=== PATIENT | female | born 1995 | race Caucasian/White ===

== ENCOUNTER → 2025-02-14 | Outpatient (CLI) | payer OTHER | LOC: M WHC 11:34 | PROVIDERS: ATTEND Advanced Practice Midwife | DX: Z36.89 Encounter for other specified antenatal screening (principal) ==

== ENCOUNTER → 2025-04-14 | Outpatient (REF) | payer OTHER | LOC: M PLALAB 14:56 | PROVIDERS: ATTEND Advanced Practice Midwife | DX: Z34.02 Encounter for supervision of normal first pregnancy, second trimester (principal) ==

== ENCOUNTER → 2025-04-14 | Outpatient (CLI) | payer OTHER, SELFPAY ==
[2025-04-14 17:24] LABS: PLATELET COUNT, AUTOMATED 198 10^3/uL (150-450)
[2025-04-14 17:52] LABS: GLUCOSE CHALLENGE TEST 1 HOUR 90 MG/DL (LESS THAN 140)
[2025-04-14 18:22] LABS: HIV 1&2 SCREEN NEGATIVE (NEGATIVE)
[2025-04-14 18:28] LABS: HEPATITIS C VIRUS ABY INDEX 0.04 INDEX (<0.8)
[2025-04-14 19:05] LABS: Trichomonas vaginalis (AMP) NOT DETECTED (NEGATIVE)
[2025-04-14 19:28] LABS: GC DNA AMPLIFICATION NEGATIVE (NEGATIVE)
== END ==
LOC: M PLALAB 13:59
PROVIDERS: ATTEND Advanced Practice Midwife
DX: Z34.02 Encounter for supervision of normal first pregnancy, second trimester (principal)

== ENCOUNTER → 2025-06-15 | Outpatient (REF) | payer OTHER | LOC: M PLALAB 10:59 | PROVIDERS: ATTEND Obstetrics & Gynecology | DX: Z34.83 Encounter for supervision of other normal pregnancy, third trimester (principal) ==

== ENCOUNTER 2025-07-09 14:36 | Outpatient (CLI) | payer OTHER ==
[~2025-07-09] VITALS: Ht 162.6 cm; Wt 90.5 kg
[2025-07-09] MEDS ORDERED: PRENMIS3 PO (14:51)
[2025-07-09] MEDS ORDERED: TUMS500C PO (14:51)
[2025-07-09] MEDS ORDERED: MAG100TA PO (14:51)
[2025-07-09] MEDS ORDERED: ACET-907 PO (14:51)
[2025-07-09] MEDS ORDERED: BENA25CA4 PO (14:51)
[2025-07-09 14:53] VITALS: BP 133/85
[2025-07-09] MEDS ORDERED: HOME MED LIST COMPLETE! XX SCH (15:00)
[2025-07-09 15:09] VITALS: BP 129/83
[2025-07-09 15:24] VITALS: BP 128/86
[2025-07-09 15:39] VITALS: BP 126/84
[2025-07-09 16:05] LABS: TOTAL PROTEIN,RANDOM URINE 14.9 MG/DL (0.0-14.0)
[2025-07-09 16:21] VITALS: BP 127/85
[2025-07-09 16:40] LABS: PLATELET COUNT, AUTOMATED 154 10^3/uL (150-450)
[2025-07-09 16:50] VITALS: BP 131/82
[2025-07-09 17:12] LABS: LDH LACTATE DEHYDROGENASE 154 U/L (120-246)
[2025-07-09 17:13] LABS: ALT/SGPT 13 U/L (7.0-40); AST/SGOT 16 U/L (<34); CALCIUM LEVEL 9.0 MG/DL (8.5-10.1); CARBON DIOXIDE LEVEL 23 MMOL/L (20-31); CHLORIDE LEVEL 102 MMOL/L (98-107); CREATININE FOR GFR 0.52 MG/DL (0.55-1.30); GLOMERULAR FILTRATION RATE > 90.0 (>60); POTASSIUM SERUM 3.9 MMOL/L (3.5-5.1); SODIUM LEVEL 137 MMOL/L (136-145)
== END 2025-07-09 18:43 | disposition home or self-care (01) ==
LOC: M LDO 14:36
PROVIDERS: ATTEND Obstetrics & Gynecology
DX: O36.8130 Decreased fetal movements, third trimester, not applicable or unspecified (principal); O99.343 Other mental disorders complicating pregnancy, third trimester; O48.0 Post-term pregnancy; F41.8 Other specified anxiety disorders; Z3A.40 40 weeks gestation of pregnancy
CPT/HCPCS: 36415; 59025; 76815; 80053; 82570; 83615; 84156; 84550; 85027; G0463

== ENCOUNTER 2025-07-11 19:03 | Inpatient (IN) | payer OTHER ==
[~2025-07-11] VITALS: Ht 162.6 cm; Wt 91.3 kg
[~2025-07-11 19:03] MED LIST: ACET-907 PO; BENA25CA4 PO; MAG100TA PO; PRENMIS3 PO; TUMS500C PO
[2025-07-11 19:27] VITALS: BP 140/87
[2025-07-11] MEDS ORDERED: METHYLERGONOVINE MALEATE 0.2 MG/ML 1 ML VIAL IM PRN (19:40)
[2025-07-11] MEDS ORDERED: OXYTOCIN INJ 10UNITS/ML 1ML VIAL IM PRN (19:40)
[2025-07-11] MEDS ORDERED: OXYTOCIN DRIP 30 UNITS in IV 1 EA IV PRN (19:40)
[2025-07-11] MEDS ORDERED: CARBOPROST TROMETHAMINE 250 MCG/ML AMP IM PRN (19:40)
[2025-07-11] MEDS ORDERED: TRANEXAMIC ACID INJection 1,000 MG in NS 100 ML IV PRN (19:40)
[2025-07-11] MEDS ORDERED: LIDOCAINE 1% MDV 20 ML VIAL INFIL PRN (19:40)
[2025-07-11 20:14] LABS: PLATELET COUNT, AUTOMATED 156 10^3/uL (150-450)
[2025-07-11 20:16] VITALS: BP 134/91
[2025-07-11 20:28] LABS: LDH LACTATE DEHYDROGENASE 184 U/L (120-246)
[2025-07-11 20:29] LABS: ALT/SGPT 17 U/L (7.0-40); AST/SGOT 23 U/L (<34); CREATININE FOR GFR 0.51 MG/DL (0.55-1.30); GLOMERULAR FILTRATION RATE > 90.0 (>60)
[2025-07-11 20:57] LABS: HIV 1&2 SCREEN NEGATIVE (NEGATIVE)
[2025-07-11 21:05] LABS: HEPATITIS C VIRUS ABY INDEX < 0.02 INDEX (<0.8)
[2025-07-11 21:09] LABS: TOTAL PROTEIN,RANDOM URINE 13.8 MG/DL (0.0-14.0)
[2025-07-12] VITALS (42 sets, daily range): BP systolic 111–166; BP diastolic 64–100
[2025-07-12] MEDS: miSOPROStol 50 MCG 1/2 TABLET PO SCH (00:08)
[2025-07-12] MEDS ORDERED: LEXA1TAB PO (00:14)
[2025-07-12] MEDS: ESCITALOPRAM OXALATE 10 MG TABLET PO SCH (09:53)
[2025-07-12] MEDS: ONDANSETRON 4MG 2ML VIAL IV PRN ×2 (10:42→23:46)
[2025-07-12] MEDS ORDERED: OXYTOCIN DRIP 30 UNITS in IV 1 EA IV SCH (14:30)
[2025-07-12] MEDS: LR 1,000 ML IV SCH (14:47)
[2025-07-12] MEDS: OXYTOCIN DRIP 30 UNITS in IV 1 EA IV SCH (14:47)
[2025-07-12] MEDS: ONDANSETRON 4MG 2ML VIAL IV ONE (15:19)
[2025-07-12] MEDS ORDERED: NALOXONE INJ 0.4 MG/1 ML VIAL IV PRN (15:55)
[2025-07-12] MEDS ORDERED: diphenhydrAMINE 50 MG/ML VIAL IV PRN (15:55)
[2025-07-12] MEDS ORDERED: EPIDURAL/PCA KEYS XX PRN (15:55)
[2025-07-12] MEDS ORDERED: LR 500 ML IV PRN (15:55)
[2025-07-12] MEDS: FENTANYL/ROPIVACAINE/NACL BAG 100 ML EPIDURAL SCH (18:13)
[2025-07-12 18:24] LABS: PLATELET COUNT, AUTOMATED 131 10^3/uL (150-450)
[2025-07-12 18:56] LABS: ALT/SGPT 17 U/L (7.0-40); AST/SGOT 21 U/L (<34); CALCIUM LEVEL 8.8 MG/DL (8.5-10.1); CARBON DIOXIDE LEVEL 26 MMOL/L (20-31); CHLORIDE LEVEL 104 MMOL/L (98-107); CREATININE FOR GFR 0.60 MG/DL (0.55-1.30); GLOMERULAR FILTRATION RATE > 90.0 (>60); POTASSIUM SERUM 4.0 MMOL/L (3.5-5.1); SODIUM LEVEL 140 MMOL/L (136-145)
[2025-07-13] VITALS (25 sets, daily range): BP systolic 100–140; BP diastolic 56–85; TEMP 98.6; O2SAT 96–100
[2025-07-13 00:51] LABS: PLATELET COUNT, AUTOMATED 156 10^3/uL (150-450)
[2025-07-13 00:58] LABS: TOTAL PROTEIN,RANDOM URINE 35.2 MG/DL (0.0-14.0)
[2025-07-13 01:02] LABS: LDH LACTATE DEHYDROGENASE 166 U/L (120-246)
[2025-07-13 01:07] LABS: ALT/SGPT 14 U/L (7.0-40); AST/SGOT 19 U/L (<34); CREATININE FOR GFR 0.50 MG/DL (0.55-1.30); GLOMERULAR FILTRATION RATE > 90.0 (>60)
[2025-07-13] MEDS: ONDANSETRON 4MG 2ML VIAL IV ONE (04:15)
[2025-07-13] MEDS: LACTATED RINGER'S 1000 ML IV STA (08:17)
[2025-07-13] MEDS ORDERED: MORPHINE PRES-FREE INJ 10 MG/10 ML VIAL As Ordered ONE (08:23)
[2025-07-13] MEDS ORDERED: dexAMETHasone 4 MG/ML 1 ML VIAL As Ordered ONE (08:24)
[2025-07-13] MEDS ORDERED: OXYTOCIN 30UNITS IN 0.9% NaCl 500ML IV BAG As Ordered ONE (08:24)
[2025-07-13] MEDS ORDERED: ONDANSETRON 4MG 2ML VIAL As Ordered ONE (08:24)
[2025-07-13] MEDS ORDERED: OXYTOCIN INJ 10UNITS/ML 1ML VIAL As Ordered ONE (08:24)
[2025-07-13] MEDS ORDERED: LIDOCAINE 2% W/EPINEPHrine 20 ML VIAL **PRES FREE As Ordered ONE (08:25)
[2025-07-13] MEDS: ceFAZolin SODIUM 2 GM in DEXTROSE 5% (D5W) ADV/MINI-BAG 50 ML IV ONE (08:28)
[2025-07-13] MEDS: AZITHROMYCIN INJ 500 MG, VIAL MATE ADAPTER 1 EACH in NS 250 ML IV ONE (08:29)
[2025-07-13] MEDS: BICITRA 30 ML SOLN UDC PO ONE (08:38)
[2025-07-13] MEDS ORDERED: METHYLERGONOVINE MALEATE 0.2 MG/ML 1 ML VIAL IM PRN (08:55)
[2025-07-13] MEDS ORDERED: MOM 30 ML SUSPENSION UDC PO PRN (08:55)
[2025-07-13] MEDS: LR 1,000 ML IV SCH (08:55)
[2025-07-13] MEDS ORDERED: RHOGAM 300MCG (1500IU) INJ IM SCH (08:55)
[2025-07-13] MEDS ORDERED: ONDANSETRON 4MG 2ML VIAL IV PRN (08:55)
[2025-07-13] MEDS ORDERED: CALCIUM CARBONATE 500 MG CHEW U/D PO PRN (08:55)
[2025-07-13] MEDS ORDERED: SIMETHICONE 80MG CHEW TAB PO PRN (08:55)
[2025-07-13] MEDS: PRENATAL VITAMINS CHEWABLE TABLET PO SCH (09:00)
[2025-07-13] MEDS: FERROUS SULFATE 325 MG TAB PO SCH (09:00)
[2025-07-13] MEDS: DOCUSATE SODIUM 100 MG CAPSULE PO SCH (09:00)
[2025-07-13] MEDS ORDERED: ACETAMINOPHEN 1000MG/100ML IV BAG As Ordered ONE (09:10)
[2025-07-13] MEDS ORDERED: KETOROLAC 30 MG/ML 1 ML VIAL As Ordered ONE (09:16)
[2025-07-13 09:27] LABS: CORD GAS ABE A -2.7; CORD GAS HCO3 A 24.2 MMOL/L; CORD GAS O2 SAT A 20.7 %; CORD GAS PCO2 A 49.7 mmHg; CORD GAS PH A 7.305 UNITS; CORD GAS PO2 A 12.9 mmHg; CORD GAS SBC A 20.3 MMOL/L; CORD GAS TCO2 A 25.7 MMOL/L
[2025-07-13 09:28] LABS: CORD GAS ABE V -0.5; CORD GAS HCO3 V 25.4 MMOL/L; CORD GAS O2 SAT V 66.8 %; CORD GAS PCO2 V 45.7 mmHg; CORD GAS PH V 7.362 UNITS; CORD GAS PO2 V 27.9 mmHg; CORD GAS SBC V 23.2 MMOL/L; CORD GAS TCO2 V 26.8 MMOL/L
[2025-07-13] MEDS: OXYTOCIN DRIP 30 UNITS in IV 1 EA IV SCH (09:57)
[2025-07-13] MEDS: PERCOCET 5MG/325MG TAB PO PRN (12:23)
[2025-07-13] MEDS ORDERED: COLA100C5 PO (15:28)
[2025-07-13] MEDS ORDERED: IBUP80TA PO (15:28)
[2025-07-13] MEDS: KETOROLAC 30 MG/ML 1 ML VIAL IV SCH (17:00)
[2025-07-14 02:00] VITALS: BP 119/75; O2SAT 98
[2025-07-14 06:14] VITALS: BP 112/64; O2SAT 97
[2025-07-14 06:51] LABS: PLATELET COUNT, AUTOMATED 134 10^3/uL (150-450)
[2025-07-14 10:09] VITALS: BP 109/62; O2SAT 97
[2025-07-14] MEDS: IBUPROFEN 800 MG TAB PO SCH (12:19)
[2025-07-14 14:00] VITALS: BP 115/64; O2SAT 97
[2025-07-14] MEDS: PERCOCET 5MG/325MG TAB PO PRN (16:22)
[2025-07-14 18:00] VITALS: BP 123/67; O2SAT 97
[2025-07-14 22:00] VITALS: BP 135/75; O2SAT 97
[2025-07-15 02:00] VITALS: BP 112/57; O2SAT 97
[2025-07-15 06:00] VITALS: BP 115/63; O2SAT 99
[2025-07-15] MEDS: MEASLES,MUMPS,RUBELLA VACCINE INJ (MMR-II) SC.IMMUN ONE (07:27)
[2025-07-15 10:00] VITALS: BP 131/80; O2SAT 96
== END 2025-07-15 14:00 | disposition home or self-care (01) | DRG 788 ==
LOC: M LDI 19:03 → M OBS 07-13 11:11
PROVIDERS: ADMIT Advanced Practice Midwife; ATTEND Advanced Practice Midwife
PROC: 3E033VJ Introduction of Other Hormone into Peripheral Vein, Percutaneous Approach (ICD-10-PCS; 2025-07-11)
PROC: 10D00Z1 Extraction of Products of Conception, Low, Open Approach (ICD-10-PCS; principal; 2025-07-13 08:30)
DX: O48.0 Post-term pregnancy (principal); F41.9 Anxiety disorder, unspecified; F32.9 Major depressive disorder, single episode, unspecified; Z37.0 Single live birth; Z3A.40 40 weeks gestation of pregnancy; O99.344 Other mental disorders complicating childbirth; O76 Abnormality in fetal heart rate and rhythm complicating labor and delivery; Z79.899 Other long term (current) drug therapy